=== PATIENT | female | born 1985 | race Caucasian/White ===

== ENCOUNTER 2017-03-31 09:59 | Day surgery (SDC) | payer BC ==
[2017-03-30 16:48] VITALS: BMI 29.9
--- NOTE | 2017-03-30 18:27 | HP ---
Date/Time of Note Date/Time of Note DATE: 03/30/17 TIME: 18:20 Assessment/Plan VTE Prophylaxis VTE Prophylaxis Intervention: ambulation Lines/Catheters IV Catheter Type (from [facility]): Peripheral IV Urinary Cath still in place: No Assessment/Plan Chief Complaint/Hosp Course Missed . Problems: Assessment/Plan D and C. HPI/ROS Admit Date/Time Admit Date/Time March 31, 2017 Hx of Present Illness 32 y.o. A2 and now with a missed . Pt's LMP was 01/19 and on US the yolk sac developed but the pole never appeared. Spotting, on occasion. Blood type is A positive. ROS Respiratory: pain Cardiovascular: no complaints Gastrointestinal: no complaints Neurologic: no complaints Psychological: no complaints PMH/Family/Social Past Medical History Medical History: no pertinent history Past Surgical History Breast implants. Family History Significant Family History: no pertinent family hx Social History Alcohol Use: none Smoking Status: Former smoker Drug Use: none Exam/Review of Systems Exam Exam 5' 6". Last weight was 187# Respiratory: clear to auscultation Cardiovascular: regular rate and rhythm Gastrointestinal: non-tender, soft Genitourinary - Female: nl adnexae, nl external genitalia Extremities: normal pulses Neurological: nl mental status PERLA STEELE MD Mar 30, 2017 18:27
[2017-03-31] VITALS (13 sets, daily range): BP systolic 98–121; BP diastolic 55–70; PULSE 74–89; RESP 8–20; Ht 167.6 cm; Wt 85.0 kg
[~2017-03-31] VITALS: Ht 167.6 cm; Wt 85.0 kg
[~2017-03-31 09:59] MED LIST: CEFAZOLIN 1 GM INJ ONE; LACTATED RINGER'S 1,000 ML IV SCH; PRENAT PO; SUGAMMADEX SODIUM 200 MG/2 ML VIAL IV ONE
[2017-03-31] MEDS ORDERED: LABETALOL HCL 20MG INJ IV PRN (11:00)
[2017-03-31] MEDS ORDERED: MEPERIDINE 25 MG INJ IV PRN (11:00)
[2017-03-31] MEDS ORDERED: EPHEDrine SULFATE 50 MG/5 ML SYG IV PRN (11:00)
[2017-03-31] MEDS ORDERED: ATROPINE 1 MG/10 ML SYRINGE IV PRN (11:00)
[2017-03-31] MEDS ORDERED: FENTAnyl 50 MCG/ML VIAL IV PRN ×2 (11:00)
[2017-03-31] MEDS ORDERED: MIDAZOLAM 1 MG/ML 2 ML INJ IV PRN (11:00)
[2017-03-31] MEDS ORDERED: hydrALAzine 20 MG INJ IV PRN (11:00)
[2017-03-31] MEDS ORDERED: DIPHENHYDRAMINE 50 MG INJ IV PRN (11:00)
[2017-03-31] MEDS ORDERED: NEOSTIGMINE 3 MG/3 ML SYRINGE ONE (11:58)
[2017-03-31] MEDS ORDERED: LIDOCAINE 2% (SDV) 5 ML INJ ONE (11:58)
[2017-03-31] MEDS ORDERED: MIDAZOLAM 1 MG/ML 2 ML INJ ONE (11:58)
[2017-03-31] MEDS ORDERED: PROPOFOL 20 ML ONE (11:58)
[2017-03-31] MEDS ORDERED: GLYCOPYRROLATE 0.4 MG INJ ONE (11:58)
[2017-03-31] MEDS ORDERED: ROCURONIUM 50 MG INJ ONE (11:58)
[2017-03-31] MEDS ORDERED: FENTAnyl 50 MCG/ML VIAL ONE (11:58)
[2017-03-31] MEDS ORDERED: ONDANSETRON 4 MG INJ ONE (11:59)
[2017-03-31 12:37] LABS: BASOPHILS % 0.5 % (0.0-2.0); EOSINOPHILS # 0.1 10^3/ul (0.0-0.5); EOSINOPHILS % 1.1 % (0.0-7.0); HEMATOCRIT 37.4 % (37.0-47.0); HEMOGLOBIN 12.8 g/dl (12.0-16.0); LYMPHOCYTES # 1.9 10^3/ul (0.8-2.9); LYMPHOCYTES % 24.1 % (15.0-51.0); MEAN CORPUSCULAR HEMOGLOBIN 30.6 pg (29.0-33.0); MEAN CORPUSCULAR HGB CONC 34.2 g/dl (32.0-37.0); MEAN CORPUSCULAR VOLUME 89.5 fl (82.0-101.0); MEAN PLATELET VOLUME 10.4 fl (7.4-10.4); MONOCYTE # 0.6 10^3/ul (0.3-0.9); MONOCYTES % 7.5 % (0.0-11.0); NEUTROPHIL # 5.4 10^3/ul (1.6-7.5); NEUTROPHILS % 66.6 % (39.0-77.0); PLATELET COUNT 207 10^3/UL (140-415); RED BLOOD COUNT 4.18 10^6/ul (4.20-5.40); RED CELL DISTRIBUTION WIDTH 13.1 % (11.5-14.5)
[2017-03-31] MEDS: ONDANSETRON 4 MG INJ IV PRN ×2 (13:26→14:32)
--- NOTE | 2017-03-31 13:56 | OPR ---
Date/Time of Note Date/Time of Note DATE: 03/31/17 TIME: 13:48 Operative Report Procedure Date: Mar 31, 2017 Preoperative Diagnosis Missed Postoperative Diagnosis Missed Operation Performed Dilitation with suction and sharp curettage Surgeon: PERLA STEELE MD Anesthesia: general Anesthesiologist: BETY WALTON MD Estimated Blood Loss: 10 - 50 ml's Specimens Products of conception Complications: None Pt Condition Post Procedure: stable Disposition: PACU Procedure Description Pt was brought to the OR and placed on the OR table and placed under general anesthesia. Her legs were then brought up into stirrups and she was prepped and draped in the usual sterile fashion. A weighted speculum was placed, the cervix was grasped with a tenaculum, the os was dilated, and the uterus was sounded to 11 cm. A 7mm rigid curved suction curette was then attached to the suction equipment and the uterine contents were evacuated. A sharp curette was then used to loosen some adherent tissue anteriorly and then the suction was used again to clean the uterus. The tenaculum was removed. There was no bleeding. The pt's perineum was cleaned, her legs brought back down into the full supine position and she was awakened from general anesthesia. She was brought to the recovery room in excellent condition. She is Rh positive. PERLA STEELE MD Mar 31, 2017 13:56
--- NOTE | 2017-03-31 13:58 | PD.PPDC ---
[employer] Discharge Instruction Condition Patient Condition: Good Diet Diet: Resume Regular Diet Activity/Restrictions Activity: Normal Activity May Shower Restrictions: No Sexual Activity Nothing in the Vagina No [place] No Tampons, douche Follow-up Follow-up with Physician: 6 Provider Information: If needed only. Otherwise call if any questions. Return to clinic for [employer] Instructions: Fever greater than 101 [place] Worsening abdominal pain Excessive Vaginal Bleeding PERLA STEELE MD Mar 31, 2017 13:57
== END 2017-03-31 16:49 | disposition home or self-care (01) ==
LOC: SDS 09:59
PROVIDERS: ATTEND Obstetrics & Gynecology
DX: O02.1 Missed abortion (principal)
CPT/HCPCS: 59820; 84703; 85025; J0690; J2175; J2250; J2405; J3010; J2710

== ENCOUNTER 2017-12-10 11:39 | Day surgery (SDC) | END 2017-12-10 16:45 | disposition home or self-care (01) ==